=== PATIENT | male | born 1965 | race African-American/Black ===

== ENCOUNTER 2017-02-22 14:01 | Observation (INO) | payer OTHER ==
[2017-02-22] MEDS ORDERED: TEMAZEPAM 15 MG CAP PO PRN (16:30)
[2017-02-22] MEDS ORDERED: oxyCODONE/ACETAMINOPHEN 5 MG/325 MG TAB PO PRN (16:30)
[2017-02-22] MEDS ORDERED: NALOXONE HCL 0.4 MG/ML AMP IV PRN (16:30)
[2017-02-22] MEDS ORDERED: LACTULOSE SYRUP 20 GM/30 ML CUP PO PRN (16:30)
[2017-02-22] MEDS ORDERED: MORPHINE SULFATE 4 MG/ML INJ IV PRN ×2 (16:30)
[2017-02-22] MEDS ORDERED: ONDANSETRON HCL 4 MG/2 ML VIAL IVP PRN (16:30)
[2017-02-22] MEDS ORDERED: BISACODYL 10 MG SUPP RECTAL PRN (16:30)
[2017-02-22] MEDS ORDERED: MAGNESIUM HYDROXIDE SUSP 30 ML CUP PO PRN (16:30)
[2017-02-22] MEDS ORDERED: SODIUM CHLORIDE 0.9% FLUSH 10 ML FLUSH IV FLUSH PRN (16:30)
[2017-02-22] MEDS ORDERED: ACETAMINOPHEN 325 MG TAB PO PRN (16:30)
[2017-02-22] MEDS ORDERED: SENNOSIDES 8.6 MG TAB PO PRN (16:30)
[2017-02-22] MEDS ORDERED: PROCHLORPERAZINE 25 MG SUPP RECTAL PRN (16:30)
[2017-02-22 17:10] VITALS: BP 129/64; PULSE 111; RESP 18; TEMP 101.2; O2SAT 98
[2017-02-22] MEDS: SODIUM CHLOR 0.9% 1000 ML INJ 1,000 ML IV SCH (17:38)
[2017-02-22] MEDS: PANTOPRAZOLE SOD 40 MG DELAYED RELEASE TAB PO SCH (17:38)
[2017-02-22] MEDS: ACETAMINOPHEN 325 MG TAB PO PRN (17:39)
[2017-02-22] MEDS: oxyCODONE/ACETAMINOPHEN 10 MG/325 MG TAB PO PRN (17:40)
[2017-02-22] MEDS ORDERED: ENOXAPARIN SODIUM 40 MG/0.4 ML SYRINGE SQ SCH (18:00)
--- NOTE | 2017-02-22 18:03 | HHI.HP ---
HPI Service [facility] Primary Care Physician Non-Staff Admission Diagnosis Diagnoses: (1) Fever Diagnosis: Principal (2) Pyelonephritis Diagnosis: Principal (3) Weakness generalized Diagnosis: Secondary Chief Complaint: Hematuria, back pain, fever Travel History International Travel<30 Days: No Contact w/Intl Traveler <30 Da: No Traveled to Known Affected Are: No Sepsis Criteria SIRS Criteria (2 or more): Temp > 100.9 or < 96.8, Heart rate over 90 Sepsis Criteria (SIRS+source): Infect source susp/known Criteria Outcome: Meets SIRS criteria History of Present Illness Mr. Michel is a 51-year-old male patient with a known medical history of kidney stones and sleep apnea who presented to [facility] ED with complaints of with generalized weakness, fever, and hematuria x 1 day. Patient states he woke up this morning with generalized weakness, hematuria and low-grade fever with complaints of associated abdominal pain, nausea with no vomiting. Denies diaphoresis. He also complains of urinary frequency with having to urinate 4-5 times per night. Also states he has had complaints of lower back pain x 1 month now Patient visited his PCP and also presented to the ED, with work up all unremarkable and leaving with prescription for PRN meloxicam and Motrin. Patient states the pain has never really subsided since pain began. He does state he has had a couple kidney stones in the past with cystoscopy and stent placement. PCP is Dr. Vaca and last seen 2 weeks ago. Transferred from [facility] emergency room to the [facility] hospital. For evaluation regarding urinary tract infections and generalized weakness and fevers Review of Systems Constitutional: COMPLAINS OF: Fever, Chills, Change in appetite, DENIES: Diaphoretic episodes Eyes: DENIES: Diplopia, Eye pain Respiratory: DENIES: Cough, Shortness of breath Cardiovascular: DENIES: Chest pain Gastrointestinal: COMPLAINS OF: Abdominal pain, Nausea, DENIES: Constipation, Diarrhea, Vomiting Genitourinary: COMPLAINS OF: Urinary frequency, Hematuria Musculoskeletal: COMPLAINS OF: Back pain Neurologic: DENIES: Headache, Poor Balance Psychiatric: DENIES: Confusion, Agitation Except as stated in HPI: all other systems reviewed are Neg Past Family Social History Past Medical History Previous kidney stones Past Surgical History Previous cystoscopy x , 2002 and 2004. Reported Medications Has been taking Meloxicam PRN over the past month. Allergies: Coded Allergies: No Known Allergies (Verified Allergy, Unknown, 02/22/17) Active Ordered Medications Current Medications Medications (Trade) Dose Ordered Sig/Ernesto Route Start Time Stop Time Status Last Admin (NS 1000 ml Inj) 1,000 ml @ 100 mls/hr Q10H IV 02/22/17 16:18 (NS Flush) 2 ml UNSCH PRN IV FLUSH 02/22/17 16:30 (NS Flush) 2 ml BID IV FLUSH 02/22/17 21:00 (Tylenol) 650 mg Q4H PRN PO 02/22/17 16:30 (Zofran Inj) 4 mg Q6H PRN IVP 02/22/17 16:30 (Compazine Supp) 25 mg Q12H PRN RECTAL 02/22/17 16:30 (Restoril) 15 mg HS PRN PO 02/22/17 16:30 (Lovenox Inj) 40 mg Q24H SQ 02/22/17 18:00 (Tylenol) 650 mg Q6H PRN PO 02/22/17 16:30 (Percocet 5-325 Mg) 1 tab Q6H PRN PO 02/22/17 16:30 (Percocet 10-325 Mg) 1 tab Q6H PRN PO 02/22/17 16:30 (Morphine Inj) 2 mg Q3H PRN IV 02/22/17 16:30 (Morphine Inj) 4 mg Q3H PRN IV 02/22/17 16:30 (Narcan Inj) 0.4 mg UNSCH PRN IV 02/22/17 16:30 (Elsa-Colace) 1 tab BID PO 02/22/17 21:00 (Milk Of Magnesia Liq) 30 ml Q12H PRN PO 02/22/17 16:30 (Senokot) 17.2 mg Q12H PRN PO 02/22/17 16:30 (Dulcolax Supp) 10 mg DAILY PRN RECTAL 02/22/17 16:30 Lactulose 30 ml 30 ml DAILY PRN PO 02/22/17 16:30 (Rocephin Inj/NS Inj) 100 ml @ 200 mls/hr Q24H IV 02/23/17 09:00 (Protonix) 40 mg DAILY PO 02/22/17 18:00 Family History Denies any family medical history of cardiovascular disease or lung disease. Social History Denies any current tobacco use. Denies any alcohol use. Denies any illicit drug use. Physical Exam Vital Signs Vital Signs Date Time Temp Pulse Resp B/P Pulse Ox O2 Delivery O2 Flow Rate FiO2 02/22/17 17:10 101.2 111 18 129/64 98 Physical Exam GENERAL: This is well-developed patient, obese male patient lying in bed in no apparent distress. SKIN: No rashes, ecchymoses or lesions. Warm and dry. HEAD: Atraumatic. Normocephalic. Pupils equal round and reactive. Extraocular motions intact. No scleral icterus. No injection or drainage. Nose without bleeding. Airway patent. He is midline NECK: Trachea midline. No JVD. Supple. CARDIOVASCULAR: Regular rate and rhythm. No murmurs, gallops, or rubs. S1 and S2 present. No S3 or S4. RESPIRATORY: Clear to auscultation. Breath sounds equal bilaterally. No wheezes , rales, or rhonchi. GASTROINTESTINAL: Abdomen soft, non-tender, nondistended. No guarding. Obese MUSCULOSKELETAL: Extremities without clubbing, cyanosis, or edema. No joint tenderness, effusion, or edema noted. Bilateral CVA tenderness. NEUROLOGICAL: Awake and alert. Cranial nerves II through XII intact. Motor and sensory grossly within normal limits. Five out of 5 muscle strength in all muscle groups. Normal speech. Insight and judgment are are good Mood and behavior appropriate Imaging Abdominal CT done on 02/22/17 at 12:42 showing nonobstructing 2 mm left renal calculi; mild to moderate hepatic steatosis. Assessment and Plan Problem List: (1) Pyelonephritis ICD Code: N12 Status: Acute (2) Weakness generalized ICD Code: R53.1 Status: Acute (3) Fever ICD Code: R50.9 Status: Acute Assessment and Plan Mr. Michel is a 51-year-old male patient with a known medical history of kidney stones who presented to [place] ED with complaints of with generalized weakness , fever, and hematuria x 1 day. Patient states he woke up this morning with generalized weakness and low-grade fever with complaints of associated abdominal pain, nausea with no vomiting. Denies any other medical history including diabetes, hypertension or cardiovascular disease. Pyelonephritis meets SIRS criteria (fever 101.2, tachycardia 111, lactic WNL 1.6 , no leukocytosis), infectious source: urinary tract Renal Calculi - Abdomen/pelvis CT showing nonobstructing 2 mm left renal calculi; mild to moderate hepatic steatosis. - Start Ceftriaxone 1 g IV q 24 hr. Monitor for fever, acetaminophen available PRN fever. - Start IVF NS 100 ml/hr. - UA ordered showing high amount of leukocyte esterase, urine culture pending. Blood cultures ordered and pending (please see [facility] visit record). Follow. - Control pain, Oxycodone PO per pain scale, Morphine IV PRN per pain scale. - Control nausea, Zofran PRN. - Monitor intake and output. Obstructive sleep apnea, chronic: Encourage use of patient's home BIPAP machine. Supplemental O2 as needed to keep sats >92%. GI Prophylaxis: Protonix. DVT Prophylaxis: SCDs/TEDs/Lovenox The exam, history, and the medical decision-making described in the above note were completed with the assistance of the mid-level provider. I reviewed and agree with the findings presented. I attest that I had a [id number] encounter with the patient on the same day, and personally performed and documented my assessment and findings in the medical record. Code Status Full Code Discussed Condition With Discussed with emergency room physician, discussed with patient and and RN and discussed with Jessica Maier Feb 22, 2017 18:03 Jatin Carlson DO Feb 23, 2017 08:43
[2017-02-22 18:38] VITALS: TEMP 100.3
[2017-02-22 20:20] VITALS: PULSE 97
[2017-02-22] MEDS: DOCUSATE SODIUM 50 MG/SENNA 8.6 MG TAB PO SCH (21:00)
[2017-02-22] MEDS: SODIUM CHLORIDE 0.9% FLUSH 10 ML FLUSH IV FLUSH SCH (21:00)
[2017-02-22 21:41] VITALS: TEMP 99
[2017-02-22 23:44] VITALS: BP 121/56; PULSE 110; RESP 20; TEMP 100.1; O2SAT 97
[2017-02-23] MEDS: oxyCODONE/ACETAMINOPHEN 10 MG/325 MG TAB PO PRN ×2 (00:01→08:44)
[2017-02-23 01:30] VITALS: PULSE 94
[2017-02-23 04:00] VITALS: PULSE 91
[2017-02-23] MEDS: SODIUM CHLOR 0.9% 1000 ML INJ 1,000 ML IV SCH ×2 (04:02→12:18)
[2017-02-23 04:43] VITALS: BP 131/62; PULSE 96; RESP 18; TEMP 97.8; TEMP 98.5; O2SAT 97
[2017-02-23 08:20] VITALS: BP 109/59; PULSE 92; RESP 16; TEMP 98.7; O2SAT 94
[2017-02-23] MEDS: PANTOPRAZOLE SOD 40 MG DELAYED RELEASE TAB PO SCH (08:44)
[2017-02-23] MEDS: DOCUSATE SODIUM 50 MG/SENNA 8.6 MG TAB PO SCH (08:44)
[2017-02-23] MEDS: SODIUM CHLORIDE 0.9% FLUSH 10 ML FLUSH IV FLUSH SCH (08:45)
[2017-02-23] MEDS ORDERED: cefTRIAXone INJ 1,000 MG in SODIUM CHLORIDE 0.9% INJ 100 ML IV SCH (09:00)
[2017-02-23 11:40] VITALS: BP 101/57; PULSE 99; RESP 14; TEMP 99.4; O2SAT 95
--- NOTE | 2017-02-23 12:10 | HHI.PR ---
Subjective Remarks Follow up for pyelonephritis, back pain, weakness. The patient reports feeling 100% better today. He denies any fevers/chills. Denies any current back pain. Denies any dysuria or urinary hesitancy; although does report frequency secondary to IVF. He wants to go home. Objective Vitals Vital Signs Date Time Temp Pulse Resp B/P Pulse Ox O2 Delivery O2 Flow Rate FiO2 02/23/17 11:40 99.4 99 14 101/57 95 02/23/17 08:20 98.7 92 16 109/59 94 02/23/17 06:25 21 02/23/17 04:43 98.5 96 18 131/62 97 02/23/17 04:00 91 02/23/17 01:30 94 02/23/17 01:14 18 02/22/17 23:44 100.1 110 20 121/56 97 02/22/17 21:41 99.0 02/22/17 20:20 97 02/22/17 18:38 100.3 02/22/17 17:10 101.2 111 18 129/64 98 I/O 02/22/17 02/22/17 02/22/17 02/23/17 02/23/17 02/23/17 07:00 15:00 23:00 07:00 15:00 23:00 Output Total 750 ml Balance -750 ml Output Urine Total 750 ml # Voids 1 Imaging 02/22/17bdomen/pelvis CT shows nonobstructing 2 mm left renal calculi; mild to moderate hepatic steatosis 02/22/17CXR shows no acute findings, no pneumonia Objective Remarks GENERAL: Well-nourished, well-developed obese middle-aged male patient in [facility]. SKIN: Warm and dry. No rash. HEENT: Normocephalic. Atraumatic.Pupils equal and round. Mucous membranes pink and moist. CARDIOVASCULAR: Regular rate and rhythm. S1, S2 noted. No murmur appreciated. RESPIRATORY: No accessory muscle use. Clear to auscultation. Breath sounds equal bilaterally. GASTROINTESTINAL: Abdomen soft, non-tender, nondistended. Normoactive bowel sounds x4. MUSCULOSKELETAL: No obvious deformities. Extremities without clubbing, cyanosis , or edema. No CVA tenderness bilaterally. NEUROLOGICAL: Awake and alert. No obvious cranial nerve deficits. Motor grossly within normal limits. Normal speech. PSYCHIATRIC: Appropriate mood and affect; insight and judgment normal. Medications and IVs Current Medications Medications (Trade) Dose Ordered Sig/Ernesto Route Start Time Stop Time Status Last Admin (NS 1000 ml Inj) 1,000 ml @ 100 mls/hr Q10H IV 02/22/17 16:18 02/23/17 04:02 (NS Flush) 2 ml UNSCH PRN IV FLUSH 02/22/17 16:30 (NS Flush) 2 ml BID IV FLUSH 02/22/17 21:00 02/23/17 08:45 (Tylenol) 650 mg Q4H PRN PO 02/22/17 16:30 02/22/17 17:39 (Zofran Inj) 4 mg Q6H PRN IVP 02/22/17 16:30 (Compazine Supp) 25 mg Q12H PRN RECTAL 02/22/17 16:30 (Restoril) 15 mg HS PRN PO 02/22/17 16:30 (Lovenox Inj) 40 mg Q24H SQ 02/22/17 18:00 02/22/17 17:38 (Tylenol) 650 mg Q6H PRN PO 02/22/17 16:30 (Percocet 5-325 Mg) 1 tab Q6H PRN PO 02/22/17 16:30 (Percocet 10-325 Mg) 1 tab Q6H PRN PO 02/22/17 16:30 02/23/17 08:44 (Morphine Inj) 2 mg Q3H PRN IV 02/22/17 16:30 (Morphine Inj) 4 mg Q3H PRN IV 02/22/17 16:30 (Narcan Inj) 0.4 mg UNSCH PRN IV 02/22/17 16:30 (Elsa-Colace) 1 tab BID PO 02/22/17 21:00 (Milk Of Magnesia Liq) 30 ml Q12H PRN PO 02/22/17 16:30 (Senokot) 17.2 mg Q12H PRN PO 02/22/17 16:30 (Dulcolax Supp) 10 mg DAILY PRN RECTAL 02/22/17 16:30 Lactulose 30 ml 30 ml DAILY PRN PO 02/22/17 16:30 (Rocephin Inj/NS Inj) 100 ml @ 200 mls/hr Q24H IV 02/23/17 09:00 02/23/17 08:46 (Protonix) 40 mg DAILY PO 02/22/17 18:00 02/23/17 08:44 A/P Problem List: (1) Pyelonephritis ICD Code: N12 Status: Acute (2) Weakness generalized ICD Code: R53.1 Status: Acute (3) Fever ICD Code: R50.9 Status: Acute Assessment and Plan 51-year-old male patient with a known medical history of kidney stones who presented to [facility] ED with complaints of with generalized weakness, fever, and hematuria x 1 day. Patient states he woke up this morning with generalized weakness and low-grade fever with complaints of associated abdominal pain, nausea with no vomiting. Denies any other medical history including diabetes, hypertension or cardiovascular disease. Sepsis with Acute Pyelonephritis: patient's meets Sepsis criteria with fever 101.2, tachycardia HR 111, and source-UTI. No leukocytosis although left shift with elevated neutrophils. Lactic acid wnl. -Urinalysis with large leuks, positive nitrite, many WBCs/Bacteria -Abdomen/pelvis CT showing nonobstructing 2 mm left renal calculi; mild to moderate hepatic steatosis. -Blood cultures with NGTD, continue to monitor (on [facility] visit) -Continue antibiotics with IV Rocephin -Supportive treatment with IVF, antiemetics, and pain control with oxycodone prn, IV morphine prn -Patient maintaining good urine output -symptoms much improved, patient wants to go home; await for preliminary urine culture prior to discharge today Renal Calculi: unlikely etiology of patient's pain -CT showed 2mm nonobstructing stones -patient informed of the results -encourage oral intake Obstructive sleep apnea, chronic: Encourage use of patient's home BIPAP machine. Supplemental O2 as needed to keep sats >92%. GI Prophylaxis: Protonix. DVT Prophylaxis: SCDs/TEDs/Lovenox Discharge Planning 1215hrs: Likely discharge later today if continued improvement, awaiting results of urine culture. 1410hrs: Patient's preliminary urine culture with gram negative rods. Patient continues to remain afebrile and adamantly wants to go home. Will discharge on Cipro. Will plan to follow up with final urine culture tomorrow and adjust antibiotics as needed. I will contact him if final urine culture shows resistance to Cipro. Patient informed there is small possibility of resistance to Cipro and he should return to the ED if he develops any worsening fevers or pain. The patient is understanding and agreeable with this plan. Discharge patient to home Condition on discharge: Improved Regular Diet as tolerated Ad Winsome activity Rx written: Cipro 500mg po bid x7days, Ibuprofen 600mg q6h prn pain #20 Follow-up with primary care physician within 1 week Nikia Joya PA-C Feb 23, 2017 12:10 pm
[2017-02-23 13:16] LABS: AUTOMATED NEUTROPHIL # 10.5 TH/MM3 (1.8-7.7); BASOPHIL # 0.1 TH/MM3 (0-0.2); BASOPHIL % 0.4 % (0.0-2.0); EOSINOPHIL % 0.2 % (0.0-4.0); HEMO FLAGS DIFF FINAL; LYMPH % 9.8 % (9.0-44.0); LYMPHOCYTE # 1.3 TH/MM3 (1.0-4.8); MEAN CELL VOLUME 81.2 FL (80.0-100.0); MEAN CORPUSCULAR HEMOGLOBIN 26.2 PG (27.0-34.0); MEAN CORPUSCULAR HGB CONC 32.3 % (32.0-36.0); NEUT % 80.6 % (16.0-70.0); PLATELET COUNT 126 TH/MM3 (150-450); RED CELL DISTRIBUTION WIDTH 14.7 % (11.6-17.2); WHITE BLOOD COUNT 13.1 TH/MM3 (4.0-11.0)
[2017-02-23 13:33] LABS: ANION GAP 8 MEQ/L (5-15); AST (GOT) 8 U/L (15-37); BICARBONATE 25.9 MEQ/L (21.0-32.0); BLOOD UREA NITROGEN 11 MG/DL (7-18); CHLORIDE 102 MEQ/L (98-107); GLOMERULAR FILTRATION RATE 75 ML/MIN (>89); MAGNESIUM 1.9 MG/DL (1.5-2.5); POTASSIUM 3.4 MEQ/L (3.5-5.1); SODIUM (NA) 136 MEQ/L (136-145)
[2017-02-23 13:42] LABS: ALKALINE PHOSPHATASE 58 U/L (45-117); ALT (GPT) 19 U/L (12-78); FREE T4 0.98 NG/DL (0.76-1.46); TOTAL BILIRUBIN ADULT 0.6 MG/DL (0.2-1.0)
[2017-02-23] MEDS ORDERED: IBUP-232 PO (14:12)
[2017-02-23] MEDS ORDERED: CIPR500T2 PO (14:12)
--- NOTE | 2017-02-23 14:14 | HHI.DCPOC ---
Discharge Care Plan Diagnosis: (1) Fever (2) Pyelonephritis Goals to Promote Your Health * To prevent worsening of your condition and complications * To maintain your health at the optimal level Directions to Meet Your Goals Take your medications as prescribed Follow your dietary instruction Follow activity as directed Keep your appointments as scheduled Take your immunizations and boosters as scheduled If your symptoms worsen call your PCP, if no PCP go to Urgent Care Center or Emergency Room Smoking is Dangerous to Your Health. Avoid second hand smoke Call the 24-hour hour crisis hotline for domestic abuse at Nikia Joya PA-C Feb 23, 2017 2:14 pm
[2017-02-23 14:15] LABS: HEMOGLOBIN A1a 1.6 %; HEMOGLOBIN A1b 0.9 %; HEMOGLOBIN Ao 84.1 %; HEMOGLOBIN F 1.3 %; HEMOGLOBIN LA1C 1.9 %; HEMOGLOBIN P3 3.6 %
[2017-02-23] MEDS ORDERED: POTASSIUM CHLORIDE 20 MEQ CONTROLLED RELEASE TAB PO ONE (14:30)
[2017-02-23] MEDS: ACETAMINOPHEN 325 MG TAB PO PRN (15:25)
== END 2017-02-23 16:08 | disposition home or self-care (01) ==
LOC: NEDDLT 16:53 → NEPHCDU 17:03
PROVIDERS: ADMIT Hospitalist; ATTEND Hospitalist
DX: N12 Tubulo-interstitial nephritis, not specified as acute or chronic (principal); R53.1 Weakness; G47.33 Obstructive sleep apnea (adult) (pediatric); N20.0 Calculus of kidney; K76.0 Fatty (change of) liver, not elsewhere classified; Z87.442 Personal history of urinary calculi
CPT/HCPCS: 71010; 74176; 80053; 81001; 82550; 82552; 82948; 83036; 83605; 83735; 84100; 84439; 84443; 84484; 85025; 85610; 85730; 87040; 87077; 87086; 87186; 87804; 93005; 96361; 96365; 96366; 96372; 96375; 97161; 97166; 99285; G0378; G8987; G8988; G8989; J0696; J1650; J2405; J7030